=== PATIENT | female | born 1995 | race African-American/Black ===

== ENCOUNTER 2018-11-01 07:49 | Emergency (ER) | payer MEDICAID ==
[~2018-11-01] VITALS: Ht 162.6 cm; Wt 52.3 kg
[2018-11-01] MEDS ORDERED: DIPHENOXYLATE/ATROP 2.5-0.025 MG TABLET PO ONE (08:45)
[2018-11-01] MEDS ORDERED: ACETAMINOPHEN 500 MG TABLET PO ONE (08:45)
[2018-11-01] MEDS ORDERED: ONDANSETRON HCL 4 MG/2 ML VIAL IVP ONE (08:45)
[2018-11-01] MEDS ORDERED: SODIUM CHLORIDE 0.9% 1,000 ML IV ONE (08:45)
[2018-11-01 08:56] LABS: BASOPHILS % (AUTO) 0.2 % (0.0-2.0); EOSINOPHILS % (AUTO) 4.6 % (1.0-6.0); HEMATOCRIT 42.9 % (36-46); HEMOGLOBIN 14.5 g/dL (12.0-16.0); LYMPHOCYTES % (AUTO) 23.8 % (22.0-44.0); MEAN CORPUSCULAR HEMOGLOBIN 30.6 pg (26.0-34.0); MEAN CORPUSCULAR HGB CONC 33.9 G/dL (31.0-37.0); MEAN CORPUSCULAR VOLUME 90 fL (80-100); MONOCYTES # (AUTO) 0.6 K/uL (0.1-1.0); NEUTROPHILS # (AUTO) 2.4 K/uL (1.8-7.7); NEUTROPHILS % (AUTO) 57.4 % (40.0-70.0); PLATELET COUNT (AUTO) 304 K/uL (150-450); RED BLOOD CELL COUNT(AUTO) 4.75 MIL/uL (4.00-5.20); RED CELL DISTRIBUTION WIDTH 12.7 % (11.5-14.5)
[2018-11-01 09:07] LABS: ANION GAP 13 mmol/L (8-16); CALCIUM, TOTAL 9.4 mg/dL (8.8-10.5); CARBON DIOXIDE 23 mmol/L (22-29); CHLORIDE 103 mmol/L (98-107); CREATININE 1.02 mg/dL (0.60-1.30); GLOMERULAR FILTR. RATE CALC > 60 mL/min (>60); GLUCOSE,RANDOM 94 mg/dL (70-110); POTASSIUM 3.4 mmol/L (3.5-5.1); SODIUM SERUM 139 mmol/L (136-145); UREA NITROGEN, BLOOD 13 mg/dL (7-18)
[2018-11-01 09:10] LABS: APPEARANCE,URINE CLEAR (CLEAR); GLUCOSE, URINE (UA) NEGATIVE (NEGATIVE); KETONES,URINE 40 mg/dL (NEGATIVE); LEUKOCYTE ESTERASE ,URINE SMALL (NEGATIVE); NITRATE,URINE NEGATIVE (NEGATIVE); OCCULT BLOOD,URINE SMALL (NEGATIVE); PROTEIN,URINE NEGATIVE (NEGATIVE)
[2018-11-01 09:13] LABS: BILIRUBIN,URINE PRELIM. POSITIVE (NEGATIVE)
[2018-11-01 09:20] LABS: BACTERIA,URINE Few /HPF (None Seen)
[2018-11-01 09:21] LABS: SQUAMOUS EPITHELIAL CELL,UR Few /LPF (None Seen)
[2018-11-01 09:27] LABS: ALANINE AMINOTRANSFERASE 12 U/L (12-78); ALBUMIN 3.9 g/dL (3.4-5.0); ALKALINE PHOSPHATASE 49 U/L (46-116); ASPARTATE AMINOTRANSFERASE 15 U/L (15-37); BILIRUBIN,TOTAL 0.6 mg/dL (0.1-1.0); HCG,QUANTITATIVE < 1 mIU/mL (0-6); LIPASE 87 U/L (73-393); TOTAL PROTEIN, SERUM 7.8 g/dL (6.4-8.2)
[2018-11-01] MEDS ORDERED: POTASSIUM CHLORIDE 10% 40 MEQ/30 ML LIQUID UDCUP PO ONE (09:45)
[2018-11-01 10:11] VITALS: BP 111/74
== END 2018-11-01 10:12 | disposition home or self-care (01) ==
LOC: EMS 07:49
DX: K52.9 Noninfective gastroenteritis and colitis, unspecified (principal); E87.6 Hypokalemia
CPT/HCPCS: 36415; 80053; 81001; 83690; 84702; 85025; 96361; 96374; 99284; J2405; J7030

== ENCOUNTER 2018-11-10 10:30 | Emergency (ER) | payer MEDICAID ==
[~2018-11-10] VITALS: Ht 162.6 cm; Wt 59.1 kg
[2018-11-10] MEDS ORDERED: DIPH-654 PO (10:41)
[2018-11-10] MEDS ORDERED: ACET-66 PO (10:41)
[2018-11-10 11:00] LABS: BASOPHILS % (AUTO) 0.5 % (0.0-2.0); EOSINOPHILS % (AUTO) 6.5 % (1.0-6.0); HEMATOCRIT 38.1 % (36-46); HEMOGLOBIN 12.8 g/dL (12.0-16.0); LYMPHOCYTES # (AUTO) 1.7 K/uL (1.0-4.8); LYMPHOCYTES % (AUTO) 40.5 % (22.0-44.0); MEAN CORPUSCULAR HEMOGLOBIN 30.3 pg (26.0-34.0); MEAN CORPUSCULAR HGB CONC 33.6 G/dL (31.0-37.0); MEAN CORPUSCULAR VOLUME 90 fL (80-100); MONOCYTES # (AUTO) 0.4 K/uL (0.1-1.0); MONOCYTES % (AUTO) 9.8 % (2.0-9.0); NEUTROPHILS # (AUTO) 1.7 K/uL (1.8-7.7); NEUTROPHILS % (AUTO) 42.7 % (40.0-70.0); PLATELET COUNT (AUTO) 380 K/uL (150-450); RED BLOOD CELL COUNT(AUTO) 4.22 MIL/uL (4.00-5.20); RED CELL DISTRIBUTION WIDTH 12.7 % (11.5-14.5)
[2018-11-10 11:05] LABS: APPEARANCE,URINE CLOUDY (CLEAR); GLUCOSE, URINE (UA) NEGATIVE (NEGATIVE); KETONES,URINE TRACE mg/dL (NEGATIVE); LEUKOCYTE ESTERASE ,URINE TRACE (NEGATIVE); NITRATE,URINE NEGATIVE (NEGATIVE); OCCULT BLOOD,URINE NEGATIVE (NEGATIVE); PH,URINE 5.5 (5.0-8.0); PROTEIN,URINE TRACE (NEGATIVE)
[2018-11-10 11:14] LABS: ANION GAP 10 mmol/L (8-16); CALCIUM, TOTAL 9.1 mg/dL (8.8-10.5); CARBON DIOXIDE 25 mmol/L (22-29); CHLORIDE 107 mmol/L (98-107); CREATININE 0.94 mg/dL (0.60-1.30); GLOMERULAR FILTR. RATE CALC > 60 mL/min (>60); GLUCOSE,RANDOM 89 mg/dL (70-110); POTASSIUM 3.7 mmol/L (3.5-5.1); SODIUM SERUM 142 mmol/L (136-145); UREA NITROGEN, BLOOD 13 mg/dL (7-18)
[2018-11-10 11:14] LABS: BILIRUBIN,URINE PRELIM. POSITIVE (NEGATIVE)
[2018-11-10 11:17] LABS: BACTERIA,URINE Rare /HPF (None Seen); MUCUS,URINE Moderate LPF (None Seen); RBC,URINE 0-2 /HPF (0-2); SQUAMOUS EPITHELIAL CELL,UR Few /LPF (None Seen)
[2018-11-10 11:22] LABS: ALANINE AMINOTRANSFERASE 11 U/L (12-78); ALBUMIN 3.7 g/dL (3.4-5.0); ALKALINE PHOSPHATASE 45 U/L (46-116); ASPARTATE AMINOTRANSFERASE 14 U/L (15-37); BILIRUBIN,TOTAL 0.5 mg/dL (0.1-1.0); HCG,QUANTITATIVE < 1 mIU/mL (0-6); LIPASE 108 U/L (73-393); TOTAL PROTEIN, SERUM 7.1 g/dL (6.4-8.2)
[2018-11-10] MEDS ORDERED: ONDANSETRON HCL 4 MG TABLET PO ONE (12:15)
[2018-11-10] MEDS ORDERED: LOPERAMIDE HCL 2 MG CAPSULE PO ONE (12:15)
[2018-11-10 12:35] VITALS: BP 118/79
== END 2018-11-10 12:38 | disposition home or self-care (01) ==
LOC: EMS 10:31
DX: R19.7 Diarrhea, unspecified (principal); F12.90 Cannabis use, unspecified, uncomplicated; R11.0 Nausea; Z79.899 Other long term (current) drug therapy
CPT/HCPCS: 36415; 80053; 81001; 83690; 84702; 85025; 99283; Q0162

== ENCOUNTER 2021-05-11 12:29 | Emergency (ER) | payer MEDICAID ==
[~2021-05-11] VITALS: Ht 162.6 cm; Wt 61.4 kg
[~2021-05-11 12:29] MED LIST: ACET-3385 PO; DIPH-654 PO
[2021-05-11] MEDS ORDERED: HYDROCODONE/ACETAMINOPHEN 5-325 MG TABLET PO ONE (13:00)
[2021-05-11] MEDS ORDERED: SULFAMETHOX/TRIMETH DS 800-160 MG/TABLET PO ONE (13:00)
[2021-05-11 13:38] VITALS: BP 142/74
== END 2021-05-11 13:54 | disposition home or self-care (01) ==
LOC: EMS 12:29
DX: N75.1 Abscess of Bartholin's gland (principal); F12.90 Cannabis use, unspecified, uncomplicated
CPT/HCPCS: 99283

== ENCOUNTER 2021-10-09 05:56 | Inpatient (IN) | payer MEDICAID ==
[~2021-10-09] VITALS: Ht 162.6 cm; Wt 62.0 kg
[2021-10-09] MEDS ORDERED: LORazepam 2 MG/ML VIAL IM ONE (06:15)
[2021-10-09 07:15] LABS: BASOPHILS % (AUTO) 0.4 % (0.0-2.0); EOSINOPHILS % (AUTO) 0.9 % (1.0-6.0); HEMATOCRIT 40.7 % (36-46); HEMOGLOBIN 14.2 g/dL (12.0-16.0); LYMPHOCYTES % (AUTO) 14.3 % (22.0-44.0); MEAN CORPUSCULAR HEMOGLOBIN 31.5 pg (26.0-34.0); MEAN CORPUSCULAR HGB CONC 34.8 G/dL (31.0-37.0); MEAN CORPUSCULAR VOLUME 91 fL (80-100); MONOCYTES # (AUTO) 0.3 K/uL (0.1-1.0); MONOCYTES % (AUTO) 5.1 % (2.0-9.0); NEUTROPHILS # (AUTO) 5.4 K/uL (1.8-7.7); NEUTROPHILS % (AUTO) 79.3 % (40.0-70.0); PLATELET COUNT (AUTO) 315 K/uL (150-450); RED CELL DISTRIBUTION WIDTH 12.6 % (11.5-14.5)
[2021-10-09 07:22] LABS: ANION GAP 10 mmol/L (8-16); CALCIUM, TOTAL 9.6 mg/dL (8.8-10.5); CARBON DIOXIDE 26 mmol/L (22-29); CHLORIDE 102 mmol/L (98-107); CREATININE 0.84 mg/dL (0.60-1.30); GLOMERULAR FILTR. RATE CALC > 60 mL/min (>60); GLUCOSE,RANDOM 116 mg/dL (70-110); POTASSIUM 3.5 mmol/L (3.5-5.1); SODIUM SERUM 138 mmol/L (136-145); UREA NITROGEN, BLOOD 17 mg/dL (7-18)
[2021-10-09 07:29] LABS: ALANINE AMINOTRANSFERASE 10 U/L (12-78); ALBUMIN 4.3 g/dL (3.4-5.0); ALKALINE PHOSPHATASE 59 U/L (46-116); ASPARTATE AMINOTRANSFERASE 11 U/L (15-37); BILIRUBIN,TOTAL 0.7 mg/dL (0.1-1.0); TOTAL PROTEIN, SERUM 8.7 g/dL (6.4-8.2)
[2021-10-09 10:19] LABS: COVID AG,FIA SOURCE NASAL SWAB
[2021-10-09] MEDS ORDERED: HALOPERIDOL 5 MG TABLET PO PRN (10:30)
[2021-10-09] MEDS ORDERED: ZOLPIDEM TARTRATE 10 MG TABLET PO PRN (10:30)
[2021-10-09] MEDS ORDERED: LORazepam 2 MG TABLET PO PRN (10:30)
[2021-10-09 16:18] VITALS: BP 95/60
[2021-10-09] MEDS: MUPIROCIN CALCIUM 2% 22 GM OINTMENT TP SCH (18:15)
[2021-10-09 21:00] VITALS: BP 104/64
[2021-10-10] MEDS ORDERED: ALBUTEROL SULFATE HFA 90 MCG/PUFF 8 GM INHALER IH PRN (05:45)
[2021-10-10] MEDS ORDERED: PETROLATUM,WHITE 28 GM JELLY TP PRN (05:45)
[2021-10-10] MEDS ORDERED: BACITRACIN 28 GM OINTMENT TP PRN (05:45)
[2021-10-10] MEDS ORDERED: DOCUSATE SODIUM 100 MG CAPSULE PO PRN (05:45)
[2021-10-10] MEDS ORDERED: LOPERAMIDE HCL 2 MG CAPSULE PO PRN (05:45)
[2021-10-10] MEDS ORDERED: MAG HYDROX/AL HYDROX/SIMETH ES 30 ML SUSPENSION UDCUP PO PRN (05:45)
[2021-10-10] MEDS ORDERED: IBUPROFEN 600 MG TABLET PO PRN (05:45)
[2021-10-10] MEDS ORDERED: BENZOCAINE/MENTHOL LOZENGE PO PRN (05:45)
[2021-10-10] MEDS ORDERED: ACETAMINOPHEN 325 MG TABLET PO PRN (05:45)
[2021-10-10] MEDS ORDERED: CloNIDine HCL 0.1 MG TABLET PO PRN (05:45)
[2021-10-10] MEDS ORDERED: MAGNESIUM HYDROXIDE SUSPENSION 30 ML UDCUP PO PRN (05:45)
[2021-10-10] MEDS ORDERED: ONDANSETRON HCL 4 MG TABLET PO PRN (05:45)
[2021-10-10] MEDS ORDERED: OMEPRAZOLE 20 MG CAPSULE PO PRN (05:45)
[2021-10-10] MEDS ORDERED: INFLUENZA VIRUS VACCINE QVS 2021-22 (6MO+)/PF 60 MCG/0.5 ML SYRINGE IM. ONE (07:15)
[2021-10-10 08:13] VITALS: BP 110/94
[2021-10-10] MEDS: MUPIROCIN CALCIUM 2% 22 GM OINTMENT TP SCH ×2 (09:00→16:01)
[2021-10-10] MEDS ORDERED: CITALOPRAM HYDROBROMIDE 20 MG TABLET PO SCH (09:00)
[2021-10-10] MEDS ORDERED: CLINDAMYCIN HCL 300 MG CAPSULE PO SCH (09:00)
[2021-10-10] MEDS: MAGNESIUM SULFATE 454 GM BOX TP SCH ×4 (09:00→16:01)
[2021-10-10] MEDS: LACTOBAC ACID/BULG/BIFID/THERM TABLET PO SCH (13:15)
[2021-10-10 16:10] VITALS: BP 126/85
[2021-10-10] MEDS: CLINDAMYCIN HCL 150 MG CAPSULE PO SCH (20:00)
[2021-10-11 01:03] VITALS: BP 114/76
[2021-10-11] MEDS: LACTOBAC ACID/BULG/BIFID/THERM TABLET PO SCH (07:28)
[2021-10-11] MEDS: MUPIROCIN CALCIUM 2% 22 GM OINTMENT TP SCH (07:28)
[2021-10-11] MEDS: CLINDAMYCIN HCL 150 MG CAPSULE PO SCH ×2 (07:28→12:56)
[2021-10-11] MEDS: MAGNESIUM SULFATE 454 GM BOX TP SCH (07:31)
[2021-10-11 10:02] VITALS: BP 132/89
[2021-10-16] MEDS ORDERED: CLIN-142 PO (09:03)
== END 2021-10-11 13:20 | disposition home or self-care (01) | DRG 754 ==
LOC: EMS 05:56 → B3A 12:58
PROVIDERS: ADMIT Psychiatry & Neurology Psychiatry; ATTEND Psychiatry & Neurology Psychiatry
DX: F32.9 Major depressive disorder, single episode, unspecified (principal); R45.851 Suicidal ideations; F12.90 Cannabis use, unspecified, uncomplicated; F41.9 Anxiety disorder, unspecified; K59.00 Constipation, unspecified; G47.00 Insomnia, unspecified; Z20.822 Contact with and (suspected) exposure to COVID-19; Z78.1 Physical restraint status; Z71.51 Drug abuse counseling and surveillance of drug abuser
CPT/HCPCS: 80053; 84703; 85025; 93005; 93041; 99285; G0480; J2060

== ENCOUNTER 2023-07-28 13:48 | Inpatient (IN) | payer MEDICAID ==
[~2023-07-28] VITALS: Ht 162.6 cm; Wt 55.8 kg
[~2023-07-28 13:48] MED LIST changes: -ACET-3385 PO; +CLIN-142 PO; -DIPH-654 PO
[2023-07-28 15:03] LABS: BASOPHILS % (AUTO) 0.4 % (0.0-2.0); EOSINOPHILS % (AUTO) 1.5 % (1.0-6.0); HEMATOCRIT 41.7 % (36-46); HEMOGLOBIN 14.3 g/dL (12.0-16.0); LYMPHOCYTES # (AUTO) 1.9 K/uL (1.0-4.8); LYMPHOCYTES % (AUTO) 23.4 % (22.0-44.0); MEAN CORPUSCULAR HEMOGLOBIN 31.4 pg (26.0-34.0); MEAN CORPUSCULAR HGB CONC 34.3 G/dL (31.0-37.0); MEAN CORPUSCULAR VOLUME 91 fL (80-100); MONOCYTES # (AUTO) 0.6 K/uL (0.1-1.0); MONOCYTES % (AUTO) 6.8 % (2.0-9.0); NEUTROPHILS # (AUTO) 5.5 K/uL (1.8-7.7); NEUTROPHILS % (AUTO) 67.9 % (40.0-70.0); PLATELET COUNT (AUTO) 311 K/uL (150-450); RED BLOOD CELL COUNT(AUTO) 4.56 MIL/uL (4.00-5.20); RED CELL DISTRIBUTION WIDTH 12.3 % (11.5-14.5); WHITE BLOOD COUNT (AUTO) 8.1 K/uL (4.5-11.0)
[2023-07-28 15:19] LABS: ANION GAP 14 mmol/L (8-16); CALCIUM, TOTAL 9.8 mg/dL (8.8-10.5); CARBON DIOXIDE 27 mmol/L (22-29); CHLORIDE 103 mmol/L (98-107); CREATININE 0.72 mg/dL (0.60-1.30); GLOMERULAR FILTR. RATE CALC > 60 mL/min (>60); GLUCOSE,RANDOM 91 mg/dL (70-110); POTASSIUM 3.6 mmol/L (3.5-5.1); SODIUM SERUM 143 mmol/L (136-145); UREA NITROGEN, BLOOD 13 mg/dL (7-18)
[2023-07-28 15:20] LABS: ALCOHOL, BLOOD (SERUM) < 3 mg/dL (0-10)
[2023-07-28 15:25] LABS: ALANINE AMINOTRANSFERASE 17 U/L (12-78); ALBUMIN 4.7 g/dL (3.4-5.0); ALKALINE PHOSPHATASE 56 U/L (46-116); ASPARTATE AMINOTRANSFERASE 19 U/L (15-37); BILIRUBIN,TOTAL 0.7 mg/dL (0.1-1.0); TOTAL PROTEIN, SERUM 9.1 g/dL (6.4-8.2)
[2023-07-28 16:22] LABS: PH,URINE DRUG SCREEN 5.5 (5.0-8.0)
[2023-07-28 16:26] LABS: ALCOHOL, URINE DRUG SCREEN NEGATIVE (NEGATIVE); AMPHET/METH SCREEN,URINE NEGATIVE (NEGATIVE); BARBITURATE SCREEN, URINE NEGATIVE (NEGATIVE); BENZODIAZEPINES SCREEN,URINE NEGATIVE (NEGATIVE); CANNABINOID SCREEN,URINE POSITIVE (NEGATIVE); COCAINE SCREEN,URINE NEGATIVE (NEGATIVE); METHADONE SCREEN, URINE NEGATIVE (NEGATIVE); OPIATE SCREEN,URINE NEGATIVE (NEGATIVE); PHENCYCLIDINE SCREEN,URINE NEGATIVE (NEGATIVE)
[2023-07-28] MEDS ORDERED: ZOLPIDEM TARTRATE 10 MG TABLET PO PRN (18:00)
[2023-07-28] MEDS ORDERED: HALOPERIDOL 5 MG TABLET PO PRN (18:00)
[2023-07-28 18:25] LABS: COVID AG,FIA SOURCE NASAL SWAB
[2023-07-28 18:46] LABS: SARS-COV2 (COVID) ANTIGEN,FIA Negative (Negative)
[2023-07-29] MEDS ORDERED: INFLUENZA VIRUS VACCINE QVS 2023-24 (6MO+)/PF 60 MCG/0.5 ML SYRINGE IM. ONE (06:30)
[2023-07-29] MEDS: LORazepam 2 MG TABLET PO PRN ×2 (07:27→17:16)
[2023-07-29 08:41] VITALS: BP 100/66; PULSE 87; RESP 18; TEMP 97.9; O2SAT 97
[2023-07-29 20:08] VITALS: RESP 18
[2023-07-29] MEDS: MIRTAZAPINE 15 MG TABLET PO SCH (20:50)
[2023-07-30 08:39] VITALS: BP 160/91; PULSE 107; RESP 18; TEMP 96.8; O2SAT 100
[2023-07-30] MEDS ORDERED: LORazepam 2 MG/ML VIAL IM ONE (09:00)
[2023-07-30] MEDS ORDERED: HALOPERIDOL LACTATE 5 MG/ML VIAL IM ONE (09:00)
[2023-07-30] MEDS ORDERED: DiphenhydrAMINE HCL 50 MG/ML VIAL IM ONE (09:00)
[2023-07-30] MEDS: MIRTAZAPINE 15 MG TABLET PO SCH (20:24)
[2023-07-30 21:39] VITALS: BP 106/56; PULSE 99; RESP 17; TEMP 96.9; O2SAT 95
[2023-07-31 02:07] LABS: HEPATITIS A ANTIBODY IGM Negative (Negative); HEPATITIS B CORE IGM Negative (Negative); HEPATITIS C AB (EIA) Non Reactive (Non Reactive)
[2023-07-31 08:54] VITALS: BP 144/98; PULSE 100; RESP 19; TEMP 97; O2SAT 97
[2023-07-31] MEDS ORDERED: ACETAMINOPHEN 325 MG TABLET PO PRN (09:00)
[2023-07-31] MEDS ORDERED: ALBUTEROL SULFATE HFA 90 MCG/PUFF 8 GM INHALER IH PRN (09:00)
[2023-07-31] MEDS ORDERED: LOPERAMIDE HCL 2 MG CAPSULE PO PRN (09:00)
[2023-07-31] MEDS ORDERED: DOCUSATE SODIUM 100 MG CAPSULE PO PRN (09:00)
[2023-07-31] MEDS ORDERED: PETROLATUM,WHITE 28 GM JELLY TP PRN (09:00)
[2023-07-31] MEDS ORDERED: NICOTINE 14 MG/24 HOUR PATCH TD PRN (09:00)
[2023-07-31] MEDS ORDERED: ONDANSETRON HCL 4 MG TABLET PO PRN (09:00)
[2023-07-31] MEDS ORDERED: MAGNESIUM HYDROXIDE SUSPENSION 30 ML UDCUP PO PRN (09:00)
[2023-07-31] MEDS ORDERED: GuaiFENesin/D-METHORPHAN [SUGAR-FREE] 200-20MG/10 ML SYRUP UDCUP PO PRN (09:00)
[2023-07-31] MEDS ORDERED: CloNIDine HCL 0.1 MG TABLET PO PRN (09:00)
[2023-07-31] MEDS ORDERED: MAG HYDROX/ALUMINUM HYD/SIMETH ES 30 ML SUSPENSION UDCUP PO PRN (09:00)
[2023-07-31] MEDS: LORazepam 2 MG TABLET PO PRN (09:01)
[2023-07-31 17:13] VITALS: RESP 18
[2023-07-31] MEDS: IBUPROFEN 400 MG TABLET PO PRN (17:13)
[2023-07-31 18:13] VITALS: RESP 18
[2023-07-31] MEDS: MIRTAZAPINE 15 MG TABLET PO SCH (20:00)
[2023-07-31 20:03] VITALS: BP 132/84; PULSE 88; RESP 18; TEMP 97.7
[2023-08-01 00:14] VITALS: RESP 18
[2023-08-01] MEDS: LORazepam 2 MG TABLET PO PRN ×2 (00:16→16:57)
[2023-08-01 06:32] VITALS: RESP 18
[2023-08-01] MEDS: IBUPROFEN 400 MG TABLET PO PRN (06:33)
[2023-08-01 08:11] VITALS: BP 123/87; PULSE 99; RESP 16; TEMP 97.9; O2SAT 98
[2023-08-01] MEDS ORDERED: TraMADol HCL 50 MG TABLET PO PRN (09:30)
[2023-08-01] MEDS ORDERED: HALOPERIDOL LACTATE 5 MG/ML VIAL ONE (09:40)
[2023-08-01] MEDS ORDERED: LORazepam 2 MG/ML VIAL ONE (09:40)
[2023-08-01] MEDS ORDERED: DiphenhydrAMINE HCL 50 MG/ML VIAL ONE (09:41)
[2023-08-01] MEDS ORDERED: LORazepam 2 MG/ML VIAL IM ONE (10:15)
[2023-08-01] MEDS ORDERED: HALOPERIDOL LACTATE 5 MG/ML VIAL IM ONE (10:15)
[2023-08-01] MEDS ORDERED: DiphenhydrAMINE HCL 50 MG/ML VIAL IM ONE (10:15)
[2023-08-01] MEDS: MIRTAZAPINE 15 MG TABLET PO SCH (20:20)
[2023-08-01 21:28] VITALS: BP 128/85; PULSE 95; RESP 17; TEMP 98; O2SAT 99
[2023-08-02] MEDS: LORazepam 2 MG TABLET PO PRN ×2 (05:23→14:50)
[2023-08-02] MEDS ORDERED: TraMADol HCL 50 MG TABLET PO ONE (07:00)
[2023-08-02 08:00] VITALS: RESP 17
[2023-08-02 10:58] VITALS: RESP 18
[2023-08-02] MEDS: TraMADol HCL 50 MG TABLET PO PRN (16:00)
[2023-08-02 17:00] VITALS: RESP 18
[2023-08-02 18:21] VITALS: BP 124/80; PULSE 93; RESP 16; TEMP 97.5
[2023-08-02] MEDS: IBUPROFEN 400 MG TABLET PO PRN (18:21)
[2023-08-02] MEDS: MIRTAZAPINE 15 MG TABLET PO SCH (23:41)
[2023-08-03 00:14] VITALS: BP 115/68; PULSE 88; RESP 18; TEMP 97.9; O2SAT 98
[2023-08-03] MEDS: LORazepam 2 MG TABLET PO PRN (06:59)
[2023-08-03] MEDS: TraMADol HCL 50 MG TABLET PO PRN (13:57)
[2023-08-03 14:03] VITALS: RESP 17
[2023-08-03 14:57] VITALS: RESP 18
[2023-08-03] MEDS: MIRTAZAPINE 15 MG TABLET PO SCH (20:06)
[2023-08-03 20:59] VITALS: BP 100/62; PULSE 78; RESP 17; TEMP 97.1; O2SAT 97
[2023-08-04 06:10] VITALS: BP 108/68; PULSE 72; RESP 17; TEMP 97.6; O2SAT 97
[2023-08-04] MEDS: IBUPROFEN 400 MG TABLET PO PRN (06:16)
[2023-08-04 08:49] LABS: BASOPHILS % (AUTO) 0.4 % (0.0-2.0); HEMOGLOBIN 13.1 g/dL (12.0-16.0); LYMPHOCYTES # (AUTO) 1.8 K/uL (1.0-4.8); MEAN CORPUSCULAR HEMOGLOBIN 31.5 pg (26.0-34.0); MEAN CORPUSCULAR HGB CONC 34.4 G/dL (31.0-37.0); MEAN CORPUSCULAR VOLUME 92 fL (80-100); MONOCYTES # (AUTO) 0.3 K/uL (0.1-1.0); MONOCYTES % (AUTO) 4.9 % (2.0-9.0); NEUTROPHILS # (AUTO) 4.2 K/uL (1.8-7.7); NEUTROPHILS % (AUTO) 63.7 % (40.0-70.0); PLATELET COUNT (AUTO) 258 K/uL (150-450); RED BLOOD CELL COUNT(AUTO) 4.14 MIL/uL (4.00-5.20); RED CELL DISTRIBUTION WIDTH 12.2 % (11.5-14.5); WHITE BLOOD COUNT (AUTO) 6.6 K/uL (4.5-11.0)
[2023-08-04 09:11] LABS: HEMOGLOBIN A1C 4.6 % (3.8-5.6)
[2023-08-04 09:27] LABS: ALANINE AMINOTRANSFERASE 16 U/L (12-78); ALBUMIN 3.9 g/dL (3.4-5.0); ALKALINE PHOSPHATASE 45 U/L (46-116); ANION GAP 8 mmol/L (8-16); ASPARTATE AMINOTRANSFERASE 20 U/L (15-37); BILIRUBIN,TOTAL 0.5 mg/dL (0.1-1.0); CALCIUM, TOTAL 9.5 mg/dL (8.8-10.5); CARBON DIOXIDE 29 mmol/L (22-29); CHLORIDE 103 mmol/L (98-107); CHOL/HDL RATIO 2.8 (3.9-5.7); CHOLESTEROL 177 mg/dL (131-200); CREATININE 0.77 mg/dL (0.60-1.30); GLOMERULAR FILTR. RATE CALC > 60 mL/min (>60); GLUCOSE,RANDOM 83 mg/dL (70-110); HDL CHOLESTEROL 63 mg/dL (40-60); LDL CHOL (CALC.) 104 mg/dL (0-130); POTASSIUM 4.4 mmol/L (3.5-5.1); SODIUM SERUM 140 mmol/L (136-145); TOTAL PROTEIN, SERUM 7.8 g/dL (6.4-8.2); TRIGLYCERIDES 49 mg/dL (15-150); UREA NITROGEN, BLOOD 15 mg/dL (7-18)
[2023-08-04] MEDS ORDERED: MIRT-89 PO (10:19)
== END 2023-08-04 11:20 | disposition home or self-care (01) | DRG 751 ==
LOC: EMS 13:49 → B3A 17:50
PROVIDERS: ADMIT Psychiatry & Neurology Psychiatry; ATTEND Psychiatry & Neurology Psychiatry
PROC: 2W3DX1Z Immobilization of Left Lower Arm using Splint (ICD-10-PCS; principal; 2023-07-28)
PROC: GZHZZZZ Group Psychotherapy (ICD-10-PCS; 2023-07-29)
DX: F33.2 Major depressive disorder, recurrent severe without psychotic features (principal); R45.851 Suicidal ideations; S52.202A Unspecified fracture of shaft of left ulna, initial encounter for closed fracture; F12.10 Cannabis abuse, uncomplicated; S69.92XA Unspecified injury of left wrist, hand and finger(s), initial encounter; F43.12 Post-traumatic stress disorder, chronic; Z20.822 Contact with and (suspected) exposure to COVID-19; G47.00 Insomnia, unspecified; W22.8XXA Striking against or struck by other objects, initial encounter; Y93.89 Activity, other specified; Y92.89 Other specified places as the place of occurrence of the external cause; Y99.8 Other external cause status; Z79.899 Other long term (current) drug therapy
CPT/HCPCS: 80053; 80061; 80074; 80307; 83036; 84443; 84703; 85025; 99285; G0480; J1200; J1630; J2060

== ENCOUNTER 2023-07-31 21:36 | Emergency (ER) | payer MEDICAID ==
[~2023-07-31] VITALS: Ht 160 cm; Wt 56.4 kg
[2023-07-31 21:50] VITALS: TEMP 98.5
[2023-07-31 21:52] VITALS: BP 104/62; PULSE 78; RESP 20
== END 2023-07-31 23:51 ==
LOC: EMS 21:37
DX: S52.202A Unspecified fracture of shaft of left ulna, initial encounter for closed fracture (principal); F33.9 Major depressive disorder, recurrent, unspecified; F12.90 Cannabis use, unspecified, uncomplicated; X58.XXXA Exposure to other specified factors, initial encounter; Y93.89 Activity, other specified; Y92.89 Other specified places as the place of occurrence of the external cause; Y99.8 Other external cause status
CPT/HCPCS: 99285; 73090-TC; Z7502

== ENCOUNTER 2023-08-02 18:59 | Emergency (ER) | payer MEDICAID ==
[~2023-08-02] VITALS: Ht 162.6 cm; Wt 56.0 kg
[2023-08-02 21:56] VITALS: BP 104/60; PULSE 77; RESP 16; TEMP 97.8
== END 2023-08-02 23:27 ==
LOC: EMS 19:00
DX: S52.202A Unspecified fracture of shaft of left ulna, initial encounter for closed fracture (principal); F32.9 Major depressive disorder, single episode, unspecified; F12.90 Cannabis use, unspecified, uncomplicated; X58.XXXA Exposure to other specified factors, initial encounter; Y93.89 Activity, other specified; Y92.89 Other specified places as the place of occurrence of the external cause; Y99.8 Other external cause status
CPT/HCPCS: 99283